=== PATIENT | female | born 1950 | race Caucasian/White ===

== ENCOUNTER → 2019-03-04 | Outpatient (CLI) | payer MEDICARE ==
--- NOTE | 2019-03-05 05:35 | NUR ---
THIS PATIENT HAD COMPLAINTS THROUGHOUT THE NIGHT ABOUT DIFFERENT TOPICS. INITIALLY PATIENT COMPLAINED SHE WAS UPSET/TIRED/BAD MOOD ABOUT PRE-PREPARATION FOR SLEEP STUDY BECAUSE OF NO CAFFEINE PRODUCTS, NO NAPS PRIOR TO BEGINNING OF SLEEP STUDY. EDUCATED PATIENT ON IMPORTANCE OF NO CAFFEINE/NO NAPS DURING TEST NIGHT THIS WOULD HER HER SLEEP FASTER AND STAY ASLEEP LONGER. TO HELP THE PATIENT, SHE WAS OFFERED TO BE SET UP FOR TEST FIRST AND GET HER SET UP QUICKLY POSSIBLE SO SHE COULD SLEEP SOONER WHICH AGREED TO. LATER IN THE NIGHT THE PATIENT COMPLAINED ABOUT BRIGHT WHITE LIGHTS IN ROOM/BATHROOM AND ASKED WHY THESE WERE NOT RED LIGHTS. LOW DIMMED LIGHTS WERE BEING USED AT THIS TIME. SHE ALSO STATED BRIGHT WHITE LIGHTS IN BATHROOM WAKE HER UP AND RED LIGHTS MAKE HER FALL ASLEEP EASIER. PATIENT WAS MADE AWARE THIS WAS THE REASON LOW DIMMED LIGHTS WERE BEING USED IN THE ROOM AND WAS OFFERED TO USE THESE SAME LOW DIMMED LIGHTS INSTEAD TO HELP WITH THIS ISSUE IF SHE NEEDS RESTROOM AGAIN. PATIENT COMPLAINED ABOUT HITTING HER HEAD WITH CALL [place] DURING THE NIGHT DUE TO CALL [place] BUTTONS NOT BEING VISIBLE AT NIGHT AND SUGGESTED HAVING LIGHTED BUTTONS [employer] BELLS FOR SLEEP LAB. PATIENT STATED AREA OF IMPACT ON HER HEAD WAS OK AND FELT FINE AND CONTINUED WITH SLEEP STUDY. OFFERED PATIENT TO KEEP DIMMED LIGHTS ON AT LOW SETTING TO HELP WITH THIS PROBLEM BUT SHE REFUSED AND STATED TV ON WAS ENOUGH. UPON INITIATION OF SPLIT NIGHT CPAP TITRATION PATIENT STATED THAT THIS IS THE TIME SHE IS UNABLE TO GO BACK TO SLEEP AND CLEANS UP AND REQUESTED TO BE AWAKE AND JOKINGLY ASKED TO CLEAN UP SHE DOES AT HOME. DISCUSSED IMPORTANCE OF ASLEEP TIME DURING SLEEP TEST AND ADVISED TO NOT FOLLOW USUAL HOME ROUTINES FOR TESTING PURPOSES AND TRY TO SLEEP. PATIENT WAS NOT VERY RECEPTIVE TO ADVICE AND AGREED TO TRY TO SLEEP. PATIENT STATED SHE HAD DRY MOUTH AFTER 2 MINUTES ON CPAP MASK. INFORMED HER CPAP MACHINE HAS A HEATED HUMIDIFIER WHICH WILL HELP HER WITH DRYNESS AND RING CALL [place] TO NOTIFY RT IF THIS DID NOT RESOLVE DURING THE NIGHT. PATIENT COMPLAINED ABOUT MASK TIGHTNESS ON CHEEKS AND NASAL BRIDGE. PATIENT REQUESTED MASK TO BE VERY LOOSE AND EXPLAINED TO HER MASK HAD TO BE ON HER FACE CLOSE ENOUGH TO CREATE A SEAL AND TO NOT HAVE AIR LEAKS AROUND MASK. READJUSTED STRAPS ON MASK UNTIL PATIENT AGREED SHE FELT COMFORTABLE WITH STRAPS AND MASK ON. ALSO REASSURED HER IF MASK OR STRAPS BECAME UNCOMFORTABLE DURING THE NIGHT TO RING CALL [place] TO HELP HER READJUST IF NEEDED. PATIENT COMPLAINED OF PULSE OXIMETER SENSOR TIGHTNESS. REMOVED AND REPLACED SENSOR ON DIFFERENT FINGER OF SAME HAND AND REPLACED TAPE LOOSELY. PATIENT AGREED THIS CHANGE WAS COMFORTABLE. PATIENT COMPLAINED ABOUT ROOM TEMPERATURE BEING COLD AT 70 DEGREES FAHRENHEIT. EXPLAINED THIS TEMPERATURE IS NEEDED DURING TEST TO AVOID SWEAT ACCUMULATING ON PATIENTS SCALP WHICH WOULD INTERFERE WITH MONITORING EEG DURING TESTING. OFFERED PATIENT EXTRA BLANKETS NEEDED DURING THE NIGHT AND OR WARM PACKS IF NEEDED. PATIENT REQUESTED ONE BLANKET AND WANTED TO PLACE OWN ROBE ON TOP OF BLANKET BUT REFUSED EXTRA BLANKETS AND TO RING CALL [place] IF STILL CALL DURING THE NIGHT TO ASSIST WITH ROOM TEMPERATURE. AT THE END OF SLEEP STUDY PATIENT STATED SHE FELT CLAUSTROPHOBIC AND FELT TIED UP WITH ALL THE WIRES AND MASK BECAUSE SHE WAS UNABLE TO MOVE IN BED . PATIENT WAS REMINDED MULTIPLE TIMES SHE WAS ABLE TO MOVE IN BED NEEDED WITH WIRING DURING THE TEST AND TO NOTIFY RT OF ANY ISSUES DURING SLEEP STUDY TO ATTEMPT TO RESOLVE PROBLEMS HAPPENING DURING STUDY. PATIENT DID NOT RING CALL [place] DURING THE NIGHT ABOUT CLAUSTROPHOBIA OR NOT BEING ABLE TO MOVE BECAUSE OF THE WIRING. Addendum: 03/06/19 at 0444 by [facility] Amended: Links added.
== END | disposition home or self-care (01) ==
LOC: SLP 20:36
PROVIDERS: ATTEND Internal Medicine
DX: G47.33 Obstructive sleep apnea (adult) (pediatric) (principal)
CPT/HCPCS: 95811